=== PATIENT | male | born 1955 | race Caucasian/White ===

== ENCOUNTER 2024-08-21 19:13 | Emergency (ER) | payer MEDICARE ==
[~2024-08-21] VITALS: Ht 182.9 cm; Wt 84.1 kg
[2024-08-21] MEDS ORDERED: phenylephrine 1% (X-tra strg) 15ml nasal spray NS PRN (19:35)
[2024-08-21 19:50] LABS: BASOPHILS % (AUTO) 0.2 % (0-1); EOSINOPHILS # (AUTO) 0.1 X10'3 (0-0.9); EOSINOPHILS % (AUTO) 0.8 % (0-6); HEMOGLOBIN 14.2 g/dl (14.0-17.9); LYMPHOCYTES % (AUTO) 12.8 % (21-51); MEAN CORPUSCULAR HEMOGLOBIN 34.2 PG (27.0-31.0); MEAN CORPUSCULAR HGB CONC 33.9 g/dL (33.0-36.5); MEAN CORPUSCULAR VOLUME 101.1 FL (78-98); MEAN PLATELET VOLUME 7.4 FL (7.4-10.4); MONOCYTES # (AUTO) 0.6 X10'3 (0-0.9); MONOCYTES % (AUTO) 7.6 % (2-12); NEUTROPHILS # (AUTO) 6.2 X10'3 (1.8-7.7); NEUTROPHILS % (AUTO) 78.6 % (42-75); PLATELET COUNT 213 X10'3 (140-440); RED BLOOD COUNT 4.15 X10'6 (4.70-6.10); RED CELL DISTRIBUTION WIDTH 12.5 % (11.5-14.5); WHITE BLOOD COUNT 7.9 X10'3 (4.5-11.0)
[2024-08-21 20:02] LABS: INR 1.1 INR
[2024-08-21] MEDS: cocaine 4% topical solution 4ml bottle MM ONE (20:53)
[2024-08-21] MEDS ORDERED: AMOX-580 PO (21:27)
[2024-08-21 21:51] VITALS: BP 140/99; PULSE 99; RESP 18; TEMP 98.6; O2SAT 99
[2024-08-21] MEDS ORDERED: HYDR-3965 PO (21:52)
== END 2024-08-21 21:52 | disposition home or self-care (01) ==
LOC: ER 19:14
DX: R04.0 Epistaxis (principal)
CPT/HCPCS: 30905; 36415; 85025; 85610; 99284

== ENCOUNTER 2024-08-24 19:23 | Emergency (ER) | payer MEDICARE ==
[~2024-08-24] VITALS: Ht 185.4 cm; Wt 70.6 kg
[~2024-08-24 19:23] MED LIST: AMOX-580 PO; HYDR-3965 PO
[2024-08-24 19:33] VITALS: BP 145/113; PULSE 97; RESP 15; TEMP 96.8; O2SAT 97
== END 2024-08-24 20:01 | disposition home or self-care (01) ==
LOC: ER 19:24
DX: R04.0 Epistaxis (principal)
CPT/HCPCS: 99281

== ENCOUNTER 2024-08-28 18:46 | Emergency (ER) | payer MEDICARE ==
[~2024-08-28] VITALS: Ht 182.9 cm; Wt 84.1 kg
[2024-08-28 20:59] VITALS: BP 160/100; PULSE 80; RESP 18; TEMP 98.6; O2SAT 99
== END 2024-08-28 21:00 | disposition home or self-care (01) ==
LOC: ER 18:47
DX: R04.0 Epistaxis (principal)
CPT/HCPCS: 99281